=== PATIENT | male | born 1980 | race Caucasian/White ===

== ENCOUNTER 2020-06-12 17:54 | Emergency (ER) | payer OTHER ==
[2020-06-12] MEDS ORDERED: VIBRAMYCIN100 MG PO (19:48)
[2020-06-15 22:06] LABS: CHLAMYDIA TRACHOMATIS, NAA Negative (Negative); NEISSERIA GONORRHOEAE, NAA Negative (Negative)
== END 2020-06-12 20:05 | disposition home or self-care (01) ==
LOC: FER 17:54
PROVIDERS: Nurse Practitioner Family
DX: A53.9 Syphilis, unspecified (principal); L98.9 Disorder of the skin and subcutaneous tissue, unspecified; Z86.19 Personal history of other infectious and parasitic diseases
CPT/HCPCS: 87491; 87591; 99283; J0696